=== PATIENT | male | born 1995 | race African-American/Black ===

== ENCOUNTER 2017-11-08 09:11 | Emergency (ER) | payer SELFPAY ==
[~2017-11-08] VITALS: Ht 165.1 cm; Wt 60.0 kg
[2017-11-08] MEDS ORDERED: IV NORMAL SALINE 1,000ML 1,000 ML IV ONE (09:45)
--- NOTE | 2017-11-08 09:48 | EKG ---
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
--- NOTE | 2017-11-08 09:51 | PHYS DOC ---
Past History Past Medical History: No Pertinent History Past Surgical History: No Surgical History Alcohol Use: None Drug Use: None Adult General Chief Complaint Chief Complaint: LACERATION/AVULSION HPI HPI 21-year-old male presents with abrasion of the right elbow after fall. The patient states he was walking on some rocks when he fell and scraped his right elbow. Further conversation with the patient reveals that he "may have blacked out". There is a gap in time where he does not remember the fall and woke up on the ground. He denies head injury or other injuries. He further admits to blackouts a couple of times a month for the last few months. They started for no apparent reason. He has not had a workup. Denies history of seizures or syncope. He has not been feeling ill. He has no other complaints. Review of Systems Review of Systems Constitutional: Denies fever or chills [] Eyes: Denies change in visual acuity, redness, or eye pain [] HENT: Denies nasal congestion or sore throat [] Respiratory: Denies cough or shortness of breath [] Cardiovascular: No additional information not addressed in HPI [] GI: Denies abdominal pain, nausea, vomiting, bloody stools or diarrhea [] : Denies dysuria or hematuria [] Musculoskeletal: Right elbow abrasion[] Integument: Denies rash or skin lesions [] Neurologic: Denies headache, focal weakness or sensory changes [] Endocrine: Denies polyuria or polydipsia [] All other systems were reviewed and found to be within normal limits, except as documented in this note. Allergies Allergies Allergies Coded Allergies Type Severity Reaction Last Updated Verified Penicillins Allergy Unknown 11/08/17 Yes ondansetron Allergy Unknown 11/08/17 Yes Physical Exam Physical Exam Constitutional: Well developed, well nourished, no acute distress, non-toxic appearance. [] HENT: Normocephalic, atraumatic, bilateral external ears normal, oropharynx moist, no oral exudates, nose normal. [] Eyes: PERRLA, EOMI, conjunctiva normal, no discharge. [] Neck: Normal range of motion, no tenderness, supple, no stridor. [] Cardiovascular:Heart rate regular rhythm, no murmur [] Lungs & Thorax: Bilateral breath sounds clear to auscultation [] Abdomen: Bowel sounds normal, soft, no tenderness, no masses, no pulsatile masses. [] Skin: 3 cm abrasion of the right posterior elbow. ROM WNL, no difficulty or pain with movement. [] Back: No tenderness, no CVA tenderness. [] Extremities: No tenderness, no cyanosis, no clubbing, ROM intact, no edema. [] Neurologic: Alert and oriented X 3, normal motor function, normal sensory function, no focal deficits noted. [] Psychologic: Flat affect, judgement normal, mood normal. [] Current Patient Data Vital Signs Vital Signs Date Time Temp Pulse Resp B/P (MAP) Pulse Ox O2 Delivery O2 Flow Rate FiO2 11/08/17 09:22 98.2 62 18 98 Room Air EKG EKG Sinus rhythm, rate 59, normal axis, no ST elevations or depressions.[] Radiology/Procedures Radiology/Procedures CT HEAD WITHOUT CONTRAST 11/08/2017 9:58 AM Indication: near syncope today Comparison: None available Procedure: Multidetector CT imaging of the head was performed without the administration of contrast. Findings: There is no evidence of acute intracranial hemorrhage. There is no evidence of acute territorial infarction. Please note that CT is limited for evaluation of acute ischemia. No mass effect or midline shift is identified . The ventricles and basilar cisterns have an appropriate appearance. No abnormal extra-axial fluid collections are seen. No acute osseous changes are identified. Impression: No evidence of acute intracranial abnormality CT DOSING PQRS STATEMENT: One or more of the following individualized dose reduction techniques were utilized for this examination: 1. Automated exposure control 2. Adjustment of the mA and/or kV according to patient size 3. Use of iterative reconstruction technique Electronically signed by: Zak Pena MD (11/08/2017 10:17 AM) [facility] DICTATED AND SIGNED BY: ZAK PENA MD DATE: 11/08/17 1015 AP and Lateral Views of the Chest 11/08/2017 9:56 AM Indication: near syncope Comparison: None available Findings: There is no focal consolidation or infiltrate identified. The cardiomediastinal silhouette is within normal limits. There is no evidence of pneumothorax or pleural effusion. No acute osseous abnormalities are identified. Impression: No evidence of acute cardiopulmonary process. Electronically signed by: Zak Pena MD (11/08/2017 10:14 AM) [facility] DICTATED AND SIGNED BY: ZAK PENA MD DATE: 11/08/17 1014 [] Course & Med Decision Making Course & Med Decision Making Pertinent Labs and Imaging studies reviewed. (See chart for details) The patient's demeanor strange. He answers questions slowly. He only gives very simple answers. I had to repeat a couple of questions. He does not seem to remember his vaccine history or other medical history. I'm not sure if this is simply distressed of myself or the medical system or even just the patient's personality. I am doing a complete syncope workup with head CT. The patient's EKG is unremarkable, his head CT is unremarkable, his chest x-ray is unremarkable. His labs significant for signs of dehydration in his urine. No signs of infection. We did give 1 L normal saline. The patient is a bit more alert and responsive. His UDS was positive for marijuana. It is possible that his symptoms stem from his marijuana use as there is been no witnessed syncope. Maybe he just thinks he passes out just doesn't remember. I did advise that he follow-up with a PCP and have further workup if he's having these episodes. He is stable for discharge at this time. His abrasion was treated irrigation, cleaning, antibiotic, and a nonadherent pad. The skin is abrazed off and sutures are not indicated. [] Dragon Disclaimer Dragon Disclaimer This electronic medical record was generated, in whole or in part, using a voice recognition dictation system. Departure Departure: Referrals: PCP,NO (PCP) TORO WYATT DO Nov 08, 2017 09:51
[2017-11-08 10:05] LABS: BASO % 1 % (0-3); EOS # 0.1 x10^3/uL (0.0-0.7); EOS % 1 % (0-3); HEMATOCRIT 41.1 % (39.0-53.0); HEMOGLOBIN 12.9 g/dL (13.0-17.5); LYMPH # 1.6 x10^3/uL (1.0-4.8); LYMPH % 29 % (24-48); MEAN CORPUSCULAR HEMOGLOBIN 23 pg (25-35); MEAN CORPUSCULAR HGB CONC 31 g/dL (31-37); MEAN CORPUSCULAR VOLUME 73 fL (79-100); MONO # 0.7 x10^3/uL (0.0-1.1); MONO % 13 % (0-9); NEUT # 3.1 x10^3uL (1.8-7.7); NEUT % 56 % (31-73); PLATELET COUNT 215 x10^3/uL (140-400); RED BLOOD COUNT 5.66 x10^6/uL (4.30-5.70); RED CELL DISTRIBUTION WIDTH 14.3 % (11.5-14.5); WHITE BLOOD COUNT 5.5 x10^3/uL (4.0-11.0)
[2017-11-08 10:07] LABS: AMPHETAMINE/METHAMPHETAMINE NEG (NEG); BARBITURATES NEG (NEG); BENZODIAZEPINES NEG (NEG); CANNABINOIDS POS (NEG); COCAINE NEG (NEG); METHADONE NEG (NEG); OPIATES NEG (NEG); PHENCYCLIDINE NEG (NEG)
[2017-11-08 10:10] LABS: CALCIUM 9.4 mg/dL (8.5-10.1); CREATININE 1.1 mg/dL (0.7-1.3); GFR 104.3; POTASSIUM 3.6 mmol/L (3.5-5.1)
[2017-11-08 10:11] LABS: BILIRUBIN,URINE NEG (NEG); CLARITY,URINE HAZY; COLOR,URINE AMBER; GLUCOSE,URINE NEG (NEG)
[2017-11-08 10:12] LABS: BACTERIA,URINE FEW /HPF (0-FEW); NITRITE,URINE NEG (NEG); SPERM,URINE PRESENT /HPF; SQUAMOUS EPITHELIAL CELL,UR FEW /LPF; UROBILINOGEN,URINE 2 mg/dL (0.2 mg/dL)
--- NOTE | 2017-11-08 10:17 | RAD ---
AP and Lateral Views of the Chest 11/08/2017 9:56 AM Indication: near syncope Comparison: None available Findings: There is no focal consolidation or infiltrate identified. The cardiomediastinal silhouette is within normal limits. There is no evidence of pneumothorax or pleural effusion. No acute osseous abnormalities are identified. Impression: No evidence of acute cardiopulmonary process. Electronically signed by: Zak Frausto MD (11/08/2017 10:14 AM) [facility]
--- NOTE | 2017-11-08 10:20 | RAD ---
CT HEAD WITHOUT CONTRAST 11/08/2017 9:58 AM Indication: near syncope today Comparison: None available Procedure: Multidetector CT imaging of the head was performed without the administration of contrast. Findings: There is no evidence of acute intracranial hemorrhage. There is no evidence of acute territorial infarction. Please note that CT is limited for evaluation of acute ischemia. No mass effect or midline shift is identified . The ventricles and basilar cisterns have an appropriate appearance. No abnormal extra-axial fluid collections are seen. No acute osseous changes are identified. Impression: No evidence of acute intracranial abnormality CT DOSING PQRS STATEMENT: One or more of the following individualized dose reduction techniques were utilized for this examination: 1. Automated exposure control 2. Adjustment of the mA and/or kV according to patient size 3. Use of iterative reconstruction technique Electronically signed by: Zak Frausto MD (11/08/2017 10:17 AM) [facility]
[2017-11-08 10:34] LABS: HYPOCHROMIA MOD; MICROCYTOSIS SLIGHT; PLT ESTIMATE ADEQUATE (ADEQUATE)
[2017-11-08 10:47] VITALS: BP 131/79
== END 2017-11-08 11:03 | disposition home or self-care (01) ==
LOC: ER 09:11
DX: S50.311A Abrasion of right elbow, initial encounter (principal); R55 Syncope and collapse; E86.0 Dehydration; Z88.0 Allergy status to penicillin; Z88.8 Allergy status to other drugs, medicaments and biological substances; W19.XXXA Unspecified fall, initial encounter; Y93.01 Activity, walking, marching and hiking; Y99.8 Other external cause status; Y92.89 Other specified places as the place of occurrence of the external cause
CPT/HCPCS: 36415; 70450; 71046; 80048; 80307; 81001; 85025; 93005; 96360; 99285-25; G0479; J7030

== ENCOUNTER 2018-03-10 10:28 | Emergency (ER) | payer SELFPAY ==
[~2018-03-10] VITALS: Ht 167.6 cm; Wt 61.2 kg
[2018-03-10] MEDS ORDERED: ASPIRIN 81 MG TAB.CHEW ONE (10:30)
[2018-03-10] MEDS ORDERED: ASPIRIN 81 MG TAB.CHEW PO ONE (10:30)
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
[2018-03-10 10:50] LABS: BASO % 1 % (0-3); EOS # 0.1 x10^3/uL (0.0-0.7); EOS % 2 % (0-3); HEMATOCRIT 43.9 % (39.0-53.0); HEMOGLOBIN 13.9 g/dL (13.0-17.5); LYMPH # 2.7 x10^3/uL (1.0-4.8); LYMPH % 39 % (24-48); MEAN CORPUSCULAR HEMOGLOBIN 23 pg (25-35); MEAN CORPUSCULAR HGB CONC 32 g/dL (31-37); MEAN CORPUSCULAR VOLUME 73 fL (79-100); MONO # 0.4 x10^3/uL (0.0-1.1); MONO % 5 % (0-9); NEUT # 3.6 x10^3uL (1.8-7.7); NEUT % 53 % (31-73); PLATELET COUNT 270 x10^3/uL (140-400); RED CELL DISTRIBUTION WIDTH 14.1 % (11.5-14.5); WHITE BLOOD COUNT 6.8 x10^3/uL (4.0-11.0)
--- NOTE | 2018-03-10 11:01 | RAD ---
Examination: CHEST PA LATERAL History: Chest and upper back pain today, no trauma Comparison/Correlation: None Findings: PA and lateral views of the chest were obtained. Heart size and pulmonary vasculature are normal. No infiltrate or effusion. No pneumothorax. Bony structures are unremarkable. Impression: No active disease. Electronically signed by: Collin Atkinson MD (03/10/2018 10:58 AM) [facility]
[2018-03-10 11:02] LABS: ALBUMIN 4.6 g/dL (3.4-5.0); ALBUMIN/GLOBULIN RATIO 1.2 (1.0-1.7); CALCIUM 9.4 mg/dL (8.5-10.1); CREATININE 1.3 mg/dL (0.7-1.3); GFR 85.2; POTASSIUM 3.3 mmol/L (3.5-5.1); TOTAL BILIRUBIN 0.5 mg/dL (0.2-1.0); TOTAL PROTEIN 8.6 g/dL (6.4-8.2)
--- NOTE | 2018-03-10 11:45 | EKG ---
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
[2018-03-10] MEDS ORDERED: IOHEXOL 300 MG/ML 75 ML VIAL. IV ONE (12:00)
--- NOTE | 2018-03-10 13:03 | RAD ---
Examination: CT ANGIOGRAPHY CHEST History: Omni 300 75cc; PE protocol: Chest and back pain, elevated d-dimer Comparison/Correlation: 03/02/2018 two-view chest x-ray exam Findings: Axial images of chest were obtained 0.75 cc Omnipaque 300 IV. Sagittal and coronal reformatted images were provided. Coronal MIP series was provided. Exam was performed according to pulmonary arteriography protocol. Pulmonary arterial vasculature is normal with no thromboembolic disease. Thoracic aortic morphology is grossly unremarkable but the thoracic aorta is not opacified for arteriographic evaluation purposes. No infiltrate, pulmonary nodule, or pneumothorax. No enlarged thoracic lymph nodes. No pleural or pericardial effusions. Bony structures are unremarkable. Partially visualized upper abdomen is unremarkable. Impression: Normal CT chest with contrast according to pulmonary arteriography protocol. Electronically signed by: Collin Atkinson MD (03/10/2018 12:59 PM) [facility]
--- NOTE | 2018-03-10 13:22 | EKG ---
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
[2018-03-10 14:09] VITALS: BP 123/68
== END 2018-03-10 14:16 | disposition home or self-care (01) ==
LOC: ER 10:28
DX: R07.81 Pleurodynia (principal); M54.6 Pain in thoracic spine; Z88.0 Allergy status to penicillin; Z88.8 Allergy status to other drugs, medicaments and biological substances
CPT/HCPCS: 36415; 71046; 71275; 80053; 84484; 85025; 85379; 85610; 93005; 99285; Q9967

== ENCOUNTER 2018-04-09 02:25 | Inpatient (IN) | payer SELFPAY ==
[~2018-04-09] VITALS: Ht 167.6 cm; Wt 60.3 kg
--- NOTE | 2018-04-09 02:28 | ED.ADGEN ---
Past History Past Medical History: Asthma, Seizure, Other Past Medical History ADHD Past Surgical History: No Surgical History Alcohol Use: None Drug Use: None Adult General Chief Complaint Chief Complaint ".. They said I had a seizure..." Pt. ".. We where in bed watching 'Fast and Furious'... and he started twitching.. I ask him if he was okay.. he said yes.. then a little while later.. he curled up and started shaking really bad... a seizure.. I could not get him to wake up... when he finally did... he was really confused.. deflash and wash operator finally arrived...he has never done this before... " Girl friend HPI HPI Patient is a 22 year old male who presents with hx. and complaints of Tonic / Clonic like seizure event. Pt. currently slow to answer questions as if post ictal. Pt. only complaints are some generalized back pain he had for over six months. Pt. seen here on 03/10 for CP and 11/08 fall and laceration. Pt. has hx of attention deficit hyperactive disorder but has not taken Adderall for over 4 years. Patient has had intermittent episodes of asthma. Patient does have a history of smoking marijuana. Patient denies any current drug use. Patient denies any fever or chills. Patient denies any specific ill contacts. Patient denies any travel. No history of trauma. Review of Systems Review of Systems Constitutional: Denies fever or chills [] Eyes: Denies change in visual acuity, redness, or eye pain [] HENT: Denies nasal congestion or sore throat [] Respiratory: Denies cough or shortness of breath [] Cardiovascular: No additional information not addressed in HPI [] GI: Denies abdominal pain, nausea, vomiting, bloody stools or diarrhea [] : Denies dysuria or hematuria [] Musculoskeletal: Generalized back pain . No joint pain [] Integument: Denies rash or skin lesions [] Neurologic: Denies headache, focal weakness or sensory changes . Pt.[]history of seizure like activity Endocrine: Denies polyuria or polydipsia [] All other systems were reviewed and found to be within normal limits, except as documented in this note. Family History Family History Non-contributory Current Medications Current Medications Current Medications Medications (Trade) Dose Ordered Sig/Tory Start Time Stop Time Status Last Admin Dose Admin Folic Acid (FOLIC ACID SYRINGE for ER) 5 mg STK-MED ONCE 04/09/18 02:52 04/09/18 02:53 DC Lactated Ringer's 1,000 ml @ 160 mls/hr Q6H15M 04/09/18 04:45 04/09/18 07:02 160 MLS/HR Lorazepam (Ativan) 1 mg 1X PRN PRN 04/09/18 04:45 Multivitamins/ Minerals (Infuvite Adult) 10 ml STK-MED ONCE 04/09/18 02:52 04/09/18 02:53 DC Multivitamins/ Minerals 10 ml/ Folic Acid 1 mg/ Thiamine HCl 100 mg/Lactated Ringer's 1,011.2 ml @ 1,011.2 mls/hr 1X ONCE 04/09/18 03:00 04/09/18 03:59 DC 04/09/18 02:55 1,011.2 MLS/HR Ondansetron HCl (Zofran) 4 mg PRN Q4HRS PRN 04/09/18 04:45 04/10/18 04:44 UNV Potassium Chloride (KCl Oral Soln) 40 meq 1X ONCE 04/09/18 04:30 04/09/18 04:32 DC 04/09/18 05:25 40 MEQ Thiamine HCl (Thiamine Vial) 200 mg STK-MED ONCE 04/09/18 02:52 04/09/18 02:53 DC See nursing for home meds Allergies Allergies Allergies Coded Allergies Type Severity Reaction Last Updated Verified Penicillins Allergy Unknown 11/08/17 Yes ondansetron Allergy Unknown 11/08/17 Yes Physical Exam Physical Exam Constitutional: Well developed, well nourished, no acute distress, non-toxic appearance. [] HENT: Normocephalic, atraumatic, bilateral external ears normal, oropharynx moist, no oral exudates, nose normal. [] Eyes: PERRLA, EOMI, conjunctiva normal, no discharge. [] Neck: Normal range of motion, no tenderness, supple, no stridor. [] Cardiovascular:Heart rate regular rhythm, no murmur [] Lungs & Thorax: Bilateral breath sounds equal apex with scattered wheezes on auscultation [] Abdomen: Bowel sounds normal, soft, no tenderness, no masses, no pulsatile masses. [] Skin: Warm, dry, no erythema, no rash. [] Back: Mild generalized muscle tenderness, no CVA tenderness. [] Extremities: No tenderness, no cyanosis, no clubbing, ROM intact, no edema. [] DTRs +2 patella and brachial. Distal sensation intact. Neurologic: Alert and oriented X 3, normal motor function, normal sensory function, no focal deficits noted. []Does appear post ictal. Psychologic: Affect flat, judgement normal, mood normal. [] Current Patient Data Vital Signs Vital Signs Date Time Temp Pulse Resp B/P (MAP) Pulse Ox O2 Delivery O2 Flow Rate FiO2 04/09/18 05:40 106 20 120/62 (81) 98 Room Air 04/09/18 02:33 97.9 Lab Results Laboratory Tests Test 04/09/18 02:44 04/09/18 03:43 White Blood Count 9.2 x10^3/uL (4.0-11.0) Red Blood Count 5.60 x10^6/uL (4.30-5.70) Hemoglobin 12.8 g/dL (13.0-17.5) L Hematocrit 40.3 % (39.0-53.0) Mean Corpuscular Volume 72 fL (79-100) L Mean Corpuscular Hemoglobin 23 pg (25-35) L Mean Corpuscular Hemoglobin Concent 32 g/dL (31-37) Red Cell Distribution Width 13.5 % (11.5-14.5) Platelet Count 278 x10^3/uL (140-400) Neutrophils (%) (Auto) 54 % (31-73) Lymphocytes (%) (Auto) 37 % (24-48) Monocytes (%) (Auto) 8 % (0-9) Eosinophils (%) (Auto) 1 % (0-3) Basophils (%) (Auto) 1 % (0-3) Neutrophils # (Auto) 5.0 x10^3uL (1.8-7.7) Lymphocytes # (Auto) 3.4 x10^3/uL (1.0-4.8) Monocytes # (Auto) 0.7 x10^3/uL (0.0-1.1) Eosinophils # (Auto) 0.1 x10^3/uL (0.0-0.7) Basophils # (Auto) 0.0 x10^3/uL (0.0-0.2) Platelet Estimate Adequate (ADEQUATE) Hypochromasia Slight Microcytosis Slight Erythrocyte Sedimentation Rate 4 (0-15) Prothrombin Time 10.5 SEC (9.4-11.4) Prothrombin Time INR 1.1 (0.9-1.1) PTT 24 SEC (23-33) Sodium Level 142 mmol/L (136-145) Potassium Level 3.3 mmol/L (3.5-5.1) L Chloride Level 103 mmol/L (98-107) Carbon Dioxide Level 23 mmol/L (21-32) Anion Gap 16 (6-14) H Blood Urea Nitrogen 16 mg/dL (8-26) Creatinine 1.2 mg/dL (0.7-1.3) Estimated GFR (Cockcroft-Gault) 93.4 Glucose Level 122 mg/dL (70-99) H Calcium Level 9.3 mg/dL (8.5-10.1) Magnesium Level 2.2 mg/dL (1.8-2.4) Creatine Kinase 353 U/L (39-308) H Troponin I Quantitative < 0.017 ng/mL (0-0.055) Urine Collection Type U cath Urine Color Yellow Urine Clarity Clear Urine pH 6.5 Urine Specific [place] 1.025 Urine Protein 30 mg/dl (NEG-TRACE) Urine Glucose (UA) Neg mg/dL (NEG) Urine Ketones (Stick) Neg mg/dL (NEG) Urine Blood Trace (NEG) Urine Nitrite Neg (NEG) Urine Bilirubin Neg (NEG) Urine Urobilinogen Dipstick 0.2 mg/dL (0.2 mg/dL) Urine Leukocyte Esterase Neg (NEG) Urine RBC 0 /HPF (0-2) Urine WBC Occ /HPF (0-4) Urine Squamous Epithelial Cells Occ /LPF Urine Bacteria 0 /HPF (0-FEW) Urine Opiates Screen Neg (NEG) Urine Methadone Screen Neg (NEG) Urine Barbiturates Neg (NEG) Urine Phencyclidine Screen Neg (NEG) Urine Amphetamine/Methamphetamine Neg (NEG) Urine Benzodiazepines Screen Neg (NEG) Urine Cocaine Screen Neg (NEG) Urine Cannabinoids Screen Pos (NEG) Urine Ethyl Alcohol Neg (NEG) EKG EKG My interpretation of EKG shows a sinus rhythm without acute morphology.[] Rate of 84 Radiology/Procedures Radiology/Procedures I interpretation of chest x-ray shows no acute cardiopulmonary findings. My interpretation CT of head shows no shift, mass, edema, bleed, or fracture. See formal report when available[] Course & Med Decision Making Course & Med Decision Making Pertinent Labs and Imaging studies reviewed. (See chart for details) Discussed presentation, testing and tx. plan with Dr. Wood- Will admit for further eval. [] Final Impression Final Impression 1. Hx of Tonic Clonic Seizure[] 2. Microcytic hypochromic anemia 12.8 Hgb. 72/23 3. Hypokalemia 3.3 Hgb 4. Elevated CK 353 5. Prolonged Post Ictal 6. Marijuana Use 7. Hx. of ADHD-as child Dragon Disclaimer Dragon Disclaimer This electronic medical record was generated, in whole or in part, using a voice recognition dictation system. MARY LOU GIBSON MD Apr 09, 2018 02:28
--- NOTE | 2018-04-09 02:40 | EKG ---
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 Electronically Signed On 04-10-2018 9:20:34 [employer] by Lars Barajas
[2018-04-09] MEDS ORDERED: MVI, ADULT NO.4 WITH VIT K 10 ML VIAL IV ONE (02:52)
[2018-04-09] MEDS ORDERED: THIAMINE 200 MG/2 ML VIAL. IV ONE (02:52)
[2018-04-09] MEDS ORDERED: FOLIC ACID 5 MG/ML SYRINGE for ER IV ONE (02:52)
[2018-04-09] MEDS ORDERED: MVI, ADULT NO.4 WITH VIT K 10 ML, FOLIC ACID SYRINGE for ER 1 MG, THIAMINE INJ 100 MG i... IV ONE ×4 (03:00)
[2018-04-09] MEDS ORDERED: LORazepam 2 MG/ML VIAL IV ONE (03:00)
[2018-04-09 03:22] LABS: BASO % 1 % (0-3); EOS # 0.1 x10^3/uL (0.0-0.7); EOS % 1 % (0-3); HEMATOCRIT 40.3 % (39.0-53.0); HEMOGLOBIN 12.8 g/dL (13.0-17.5); LYMPH # 3.4 x10^3/uL (1.0-4.8); LYMPH % 37 % (24-48); MEAN CORPUSCULAR HEMOGLOBIN 23 pg (25-35); MEAN CORPUSCULAR HGB CONC 32 g/dL (31-37); MEAN CORPUSCULAR VOLUME 72 fL (79-100); MONO # 0.7 x10^3/uL (0.0-1.1); MONO % 8 % (0-9); NEUT % 54 % (31-73); PLATELET COUNT 278 x10^3/uL (140-400); RED CELL DISTRIBUTION WIDTH 13.5 % (11.5-14.5); WHITE BLOOD COUNT 9.2 x10^3/uL (4.0-11.0)
--- NOTE | 2018-04-09 03:22 | RAD ---
CT scan of the head without contrast 04/09/2018 Clinical History: Seizures and lethargy. Technique: Unenhanced, contiguous, 5 mm axial sections were obtained through the head. One or more of the following individualized dose reduction techniques were utilized for this study: 1. Automated exposure control. 2. Adjustment of the mA and/or kV according to patient size. 3. Use of iterative reconstruction technique. Findings: Comparison study is dated 11/08/2017. The ventricles and sulci are within normal limits in size and configuration. No focal area of abnormal attenuation is seen involving the brain parenchyma. No extra-axial fluid collection is seen. A 1 cm mucous retention cyst is involving the left maxillary sinus. No skull fracture is seen. Impression: Negative study. Electronically signed by: Ran Lawler MD (04/09/2018 3:19 AM) [facility]
--- NOTE | 2018-04-09 03:24 | RAD ---
AP portable chest radiograph 04/09/2018 Clinical History: Weakness and lethargy. An AP erect portable digital radiograph of the chest was obtained. Comparison study is dated 03/10/2018. The cardiac and mediastinal silhouettes are within normal limits in size and configuration. No acute pulmonary infiltrate is seen. No pleural effusion or pneumothorax is noted. The osseous structures are grossly intact. Impression: No acute abnormality is seen. Electronically signed by: Ran Lawler MD (04/09/2018 3:20 AM) [id number]
[2018-04-09 03:30] LABS: CALCIUM 9.3 mg/dL (8.5-10.1); CREATININE 1.2 mg/dL (0.7-1.3); GFR 93.4; MAGNESIUM 2.2 mg/dL (1.8-2.4); POTASSIUM 3.3 mmol/L (3.5-5.1)
[2018-04-09 03:39] LABS: HYPOCHROMIA SLIGHT; MICROCYTOSIS SLIGHT; PLT ESTIMATE ADEQUATE (ADEQUATE)
[2018-04-09 04:04] LABS: BACTERIA,URINE 0 /HPF (0-FEW); BILIRUBIN,URINE NEG (NEG); CLARITY,URINE CLEAR; COLOR,URINE YELLOW; GLUCOSE,URINE NEG (NEG); NITRITE,URINE NEG (NEG); RBC,URINE 0 /HPF (0-2); SQUAMOUS EPITHELIAL CELL,UR OCC /LPF; UROBILINOGEN,URINE 0.2 mg/dL (0.2 mg/dL); WBC,URINE OCC /HPF (0-4)
[2018-04-09 04:11] LABS: BARBITURATES NEG (NEG); BENZODIAZEPINES NEG (NEG); CANNABINOIDS POS (NEG); COCAINE NEG (NEG); METHADONE NEG (NEG); OPIATES NEG (NEG); PHENCYCLIDINE NEG (NEG)
[2018-04-09 04:13] LABS: AMPHETAMINE/METHAMPHETAMINE NEG (NEG)
[2018-04-09] MEDS ORDERED: POTASSIUM CHLORIDE 20 MEQ/15 ML ORAL LIQUID. PO ONE (04:30)
[2018-04-09] MEDS ORDERED: LORazepam 2 MG/ML VIAL IV PRN ×2 (04:45→18:00)
[2018-04-09] MEDS ORDERED: ONDANSETRON PF 4 MG/2 ML VIAL. IV PRN (04:45)
[2018-04-09] MEDS: IV RINGERS SOLUTION,LACTATED 1,000 ML IV SCH ×4 (07:02→21:57)
[2018-04-09 08:01] VITALS: BP 129/77
[2018-04-09 10:30] VITALS: BP 111/61
[2018-04-09] MEDS ORDERED: METOCLOPRAMIDE HCL 10 MG/2 ML VIAL. ONE (12:37)
--- NOTE | 2018-04-09 13:21 | HP ---
ADMIT DATE: 04/09/2018 HISTORY OF PRESENT ILLNESS: The patient is a 22-year-old -Burkinan male patient who was brought to the Emergency Room. He was in bed watching fast and furious and started twitching. He apparently started shaking bad and was unresponsive. When he woke up, he was really confused, he apparently has bitten his tongue, but did not become incontinent of bladder or bowel. By the time he arrived to the Emergency Room, he was in postictal state. His only complaint when arrived there was generalized back pain that he had for almost 6 months. He apparently was seen on 03/10/2018 for chest pain and 11/08/2017 for fall and laceration. He apparently had a history of attention deficit hyperactivity syndrome and was taking Adderall before. He has also childhood bronchial asthma that he outgrow and apparently has history of smoking marijuana, although he denies any current drug use. PAST MEDICAL HISTORY: Significant for bronchial asthma and attention deficit hyperactivity syndrome. PAST SURGICAL HISTORY: Unremarkable. ALLERGIES: SHE IS ALLERGIC TO PENICILLIN AND ONDANSETRON. MEDICATIONS: He is currently on no medication. FAMILY HISTORY: He has 1 older sister and one younger sister, one younger brother, all healthy. He does not know his biological father. His mother is alive and healthy. 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 Smokes cigarettes occasionally, drinks alcohol occasionally. He claims that is not using any drugs, although his urine tox screen was positive for marijuana. PHYSICAL EXAMINATION: GENERAL: On arrival to the Emergency Room, he looked well and was clearly in no apparent respiratory distress, somewhat pale, but no jaundice, cyanosis, lymphadenopathy, or thyromegaly. No jugular venous distension. No lower limb edema. VITAL SIGNS: His heart rate was 106, blood pressure was 120/62, temperature was 98.2, respiratory rate was 20, and oxygen saturation was 98% on room air. HEAD, EYES, EARS, NOSE, AND THROAT: Showed normocephalic, atraumatic. NECK: Supple, with no neck rigidity. Kernig's sign was negative. HEART: Showed normal first and second heart sounds with no gallop, rub, or murmur. CHEST: Clear to auscultation. No crepitation or rhonchi. ABDOMEN: Distended, soft, nontender. NEUROLOGIC: He was awake, alert, responding appropriately. Cranial nerves intact. He moves extremities without difficulty, apparently he was able to ambulate without assistance or assistive devices. LABORATORY DATA: On arrival to the Emergency Room, he was extensively investigated. His chemistry showed a serum sodium 142, potassium 3.3, chloride 103, bicarbonate 23, anion gap of 16, BUN of 16, creatinine 1.2, estimated GFR was 93 mL per minute. His glucose was 122. His calcium was 9.3, magnesium was 2.2. CK was 353. His prothrombin time was 10.5, INR 1.1, aPTT was 24. Urinalysis showed the urine was yellow, clear with a pH of 6.5, specific gravity of 1.025, small amount of protein. The urine was negative for glucose, ketones, trace of blood. The urine was negative for nitrite, leukocyte esterase. There are no rbc's, occasional wbc's, no bacteria. His urine toxicology screen was positive for cannabinoids. He did have a CT scan of the head, which basically showed the ventricles and sulci are within normal limits in size and configuration. No focal areas of abnormal attenuation is seen involving the brain parenchyma. No extraaxial fluid collection is seen. A 1 cm mucus retention cyst is involving the left maxillary sinus. No skull fracture is seen. His chest x-ray showed no acute abnormalities seen. We did plan to arrange for him to have an EEG. He was seen by Dr. Álvarez, however, the patient decided to leave against medical advice. KELSIE MCKEON MD DR: REHAN/lindsey JOB#: [id number] / [id number]
[2018-04-09] MEDS ORDERED: METOCLOPRAMIDE HCL 10 MG/2 ML VIAL. IV PRN (13:30)
[2018-04-09 15:11] VITALS: BP 123/65
[2018-04-09 19:18] VITALS: BP 101/56
[2018-04-09 23:03] VITALS: BP 109/60
[2018-04-10] MEDS: IV RINGERS SOLUTION,LACTATED 1,000 ML IV SCH ×3 (05:13→18:15)
[2018-04-10 05:56] VITALS: BP 121/72
[2018-04-10 07:02] LABS: CALCIUM 8.6 mg/dL (8.5-10.1); CREATININE 0.8 mg/dL (0.7-1.3); GFR 149.1; POTASSIUM 3.2 mmol/L (3.5-5.1)
[2018-04-10 07:04] LABS: BASO % 1 % (0-3); EOS # 0.1 x10^3/uL (0.0-0.7); EOS % 2 % (0-3); HEMATOCRIT 36.3 % (39.0-53.0); HEMOGLOBIN 11.3 g/dL (13.0-17.5); LYMPH % 38 % (24-48); MEAN CORPUSCULAR HEMOGLOBIN 22 pg (25-35); MEAN CORPUSCULAR HGB CONC 31 g/dL (31-37); MEAN CORPUSCULAR VOLUME 72 fL (79-100); MONO # 0.4 x10^3/uL (0.0-1.1); MONO % 7 % (0-9); NEUT # 2.8 x10^3uL (1.8-7.7); NEUT % 53 % (31-73); PLATELET COUNT 195 x10^3/uL (140-400); RED BLOOD COUNT 5.07 x10^6/uL (4.30-5.70); RED CELL DISTRIBUTION WIDTH 13.5 % (11.5-14.5); WHITE BLOOD COUNT 5.2 x10^3/uL (4.0-11.0)
[2018-04-10] MEDS ORDERED: POTASSIUM CHLORIDE 20 MEQ TABLET.ER. PO ONE (08:30)
[2018-04-10 10:50] VITALS: BP 121/66
--- NOTE | 2018-04-10 12:47 | CONS ---
DATE OF CONSULTATION: 04/09/2018 NEUROLOGY CONSULTATION REFERRING PHYSICIAN: Dr. Wood. REASON FOR CONSULTATION: Recurrent seizures. HISTORY OF PRESENT ILLNESS: This is a 22-year-old right-handed -Armenian male who was admitted through the Emergency Room after he presented with possible recurrent seizure. Apparently the patient had a sudden onset of twitching followed by seizure-like activities, loss of consciousness and postictal confusion. In the Emergency Room, the patient was confused and disoriented and possibly in postictal state. According to his girlfriend, the patient had similar seizure-like activity a month ago. The patient denies any history of seizure during childhood, recent head injuries, or recent drug use. Nonenhanced head CT scan revealed no evidence of acute intracranial process. PAST MEDICAL HISTORY: Significant for asthma and attention deficit hyperactivity disorders. SOCIAL HISTORY: The patient is single. He works in [email or web address]. He smokes cigarette and he drinks alcohol occasionally. He denies drug use; however, his urine drug screen revealed evidence of marijuana. FAMILY HISTORY: Noncontributory. CURRENT HOME MEDICATIONS: None. REVIEW OF SYSTEMS: A 10-point review of system was performed as mentioned above in the history of present illness. PHYSICAL EXAMINATION: GENERAL: Well-developed, well-nourished -Armenian male, not in acute distress. He weighs 137 pounds. VITAL SIGNS: Blood pressure 129/77, respiratory rate 18, pulse is 91, temperature 98.2, oxygen saturation 97% on room air. HEENT: Normocephalic, atraumatic, otherwise unremarkable. NECK: Supple. Negative for carotid bruit, lymphadenopathy or thyromegaly. LUNGS: Clear to A and P. CARDIOVASCULAR: Regular rate and rhythm. Normal S1, S2. There is no S3, S4 or murmur. ABDOMEN: Soft. Bowel sounds positive. EXTREMITIES: Negative for cyanosis, clubbing, or pitting edema. NEUROLOGIC: 1. Mental Status: The patient is alert and oriented x 3. Speech is fluent. There is no language dysfunction. Memory, judgment, and abstract thinking are fair. The patient denies hallucination or delusion. 2. Cranial Nerves: Visual pantoja are full. The pupils are reactive to light and accommodation. The extraocular movements are intact. There is no nystagmus. There is no facial motor or sensory deficit. Hearing is intact bilaterally. The palate is elevated symmetrically. Sternocleidomastoid muscles are powerful bilaterally. The patient shrugs his shoulders symmetrically. He protrudes his tongue in the midline without fasciculation or atrophy. 3. Motor Examination: No focal muscle bulk was seen. The tone is normal. The strength is 5/5 throughout. 4. Sensory Examination: Normal pinprick, light touch, vibratory and position senses. 5. Deep Tendon Reflexes: Symmetric and active without pathologic responses. 6. Gait: Not tested. DIAGNOSTIC DATA: Head CT scan as mentioned above in history of present illness. Chest x-ray revealed no evidence of cardiopulmonary process. LABORATORY DATA: CBC revealed white blood cells of 9.2 thousand, hemoglobin 12.8, hematocrit 40.3, platelet count 278,000. Chemistry revealed sodium of 142, potassium 3.3, chloride 103, CO2 23, BUN 16, creatinine 1.2, glucose 122, calcium 9.3, creatinine kinase is 353. Troponin level is normal at 2. Urinalysis is negative for urinary tract infections and urine drug screen is positive for marijuana. IMPRESSION: 1. Possible breakthrough seizure, etiology uncertain. 2. History of bronchial asthma and attention deficit hyperactivity disorders. RECOMMENDATIONS: 1. Electroencephalogram. 2. Continue with current management initiated by Dr. Wood. In case of recurrent seizure during this hospitalization, the patient will be started on anticonvulsants. M Bar SALCIDO MD DR: TOBY/lindsey JOB#: [id number] / [id number]
[2018-04-10 15:20] VITALS: BP 107/71
== END 2018-04-10 19:24 | disposition home or self-care (01) | DRG 101 ==
LOC: ER 02:25 → 1 SOUTH 06:02
PROVIDERS: ADMIT Internal Medicine; ATTEND Internal Medicine
DX: G40.909 Epilepsy, unspecified, not intractable, without status epilepticus (principal); F05 Delirium due to known physiological condition; F17.210 Nicotine dependence, cigarettes, uncomplicated; F90.9 Attention-deficit hyperactivity disorder, unspecified type; D50.9 Iron deficiency anemia, unspecified; F12.90 Cannabis use, unspecified, uncomplicated; E87.6 Hypokalemia; Z79.899 Other long term (current) drug therapy; J45.909 Unspecified asthma, uncomplicated; Z88.0 Allergy status to penicillin; Z88.8 Allergy status to other drugs, medicaments and biological substances
CPT/HCPCS: 36415; 70450; 71045; 80048; 80307; 81001; 82550; 83735; 84484; 85025; 85045; 85610; 85651; 85730; 93005; 95816; J2060; J2765; J7120

== ENCOUNTER 2018-08-14 11:18 | Emergency (ER) | payer SELFPAY ==
[~2018-08-14] VITALS: Ht 167.6 cm; Wt 59.0 kg
[2018-08-14] MEDS ORDERED: IV NORMAL SALINE 1,000ML 1,000 ML IV ONE (11:30)
--- NOTE | 2018-08-14 11:47 | RAD ---
CT of the head without contrast, 08/14/2018: HISTORY: Seizure Comparison is made to a study from 04/09/2018. The ventricles are within normal limits in size. There is no shift of the midline structures. There is no evidence of acute intracranial hemorrhage or mass effect. IMPRESSION: No acute intracranial abnormality is detected. [facility] Compliance Statement: One or more of the following individualized dose reduction techniques were utilized for this examination: 1. Automated exposure control 2. Adjustment of the mA and/or kV according to patient size 3. Use of iterative reconstruction technique Electronically signed by: Loi Huynh MD (08/14/2018 11:44 AM) [facility]
--- NOTE | 2018-08-14 11:51 | PHYS DOC ---
Past History Past Medical History: Seizure Past Surgical History: No Surgical History Alcohol Use: None Drug Use: Marijuana Adult General Chief Complaint Chief Complaint: SEIZURE HPI HPI 3-year-old male presents with seizure. The patient was riding in a car with his family when he began to have full body convulsions. This lasted for a couple minutes. The patient has had 3 other previous episodes in the last 6 months. He is post ictal afterwards. He did not have any injuries to his tongue. He did not have loss of bowel or bladder. His last episode was 2 days ago and he bit his tongue at that time. The patient was seen last fall by neurologist and the EEG was negative. He was not placed on a medications. Patient has been feeling well. He denies fever or chills. Review of Systems Review of Systems Constitutional: Denies fever or chills [] Eyes: Denies change in visual acuity, redness, or eye pain [] HENT: Denies nasal congestion or sore throat [] Respiratory: Denies cough or shortness of breath [] Cardiovascular: No additional information not addressed in HPI [] GI: Denies abdominal pain, nausea, vomiting, bloody stools or diarrhea [] : Denies dysuria or hematuria [] Musculoskeletal: Denies back pain or joint pain [] Integument: Denies rash or skin lesions [] Neurologic: Seizure. Denies headache, focal weakness or sensory changes [] Endocrine: Denies polyuria or polydipsia [] All other systems were reviewed and found to be within normal limits, except as documented in this note. Current Medications Current Medications Current Medications Medications (Trade) Dose Ordered Sig/Tory Start Time Stop Time Status Last Admin Dose Admin Levetiracetam (Keppra) 1,000 mg 1X ONCE 08/14/18 12:00 08/14/18 12:01 Sodium Chloride 1,000 ml @ 1,000 mls/hr 1X ONCE 08/14/18 11:30 08/14/18 12:29 08/14/18 11:34 1,000 MLS/HR Allergies Allergies Allergies Coded Allergies Type Severity Reaction Last Updated Verified Penicillins Allergy Intermediate 08/14/18 Yes ondansetron Allergy Intermediate 08/14/18 Yes Physical Exam Physical Exam Constitutional: Well developed, well nourished, no acute distress, non-toxic appearance. [] HENT: Normocephalic, atraumatic, bilateral external ears normal, oropharynx moist, no oral exudates, nose normal. [] Eyes: PERRLA, EOMI, conjunctiva normal, no discharge. [] Neck: Normal range of motion, no tenderness, supple, no stridor. [] Cardiovascular:Heart rate regular rhythm, no murmur [] Lungs & Thorax: Bilateral breath sounds clear to auscultation [] Abdomen: Bowel sounds normal, soft, no tenderness, no masses, no pulsatile masses. [] Skin: Warm, dry, no erythema, no rash. [] Back: No tenderness, no CVA tenderness. [] Extremities: No tenderness, no cyanosis, no clubbing, ROM intact, no edema. [] Neurologic: Alert and oriented X 3, normal motor function, normal sensory function, no focal deficits noted. [] Psychologic: Affect normal, judgement normal, mood normal. [] Current Patient Data Vital Signs Vital Signs Date Time Temp Pulse Resp B/P (MAP) Pulse Ox O2 Delivery O2 Flow Rate FiO2 08/14/18 11:25 98.1 74 18 100 Room Air EKG EKG [] Radiology/Procedures Radiology/Procedures [] Impressions: CT of the head without contrast, 08/14/2018: HISTORY: Seizure Comparison is made to a study from 04/09/2018. The ventricles are within normal limits in size. There is no shift of the midline structures. There is no evidence of acute intracranial hemorrhage or mass effect. IMPRESSION: No acute intracranial abnormality is detected. [facility] Compliance Statement: One or more of the following individualized dose reduction techniques were utilized for this examination: 1. Automated exposure control 2. Adjustment of the mA and/or kV according to patient size 3. Use of iterative reconstruction technique Electronically signed by: Loi Huynh MD (08/14/2018 11:44 AM) [facility] DICTATED AND SIGNED BY: LOI HUYNH MD DATE: 08/14/18 1144 CC: TORO WYATT DO; PCP,NO ~ Course & Med Decision Making Course & Med Decision Making Pertinent Labs and Imaging studies reviewed. (See chart for details) The patient's head CT is negative for acute findings. His labs are unremarkable. His urine drug screen was positive for marijuana. We have given the patient 1 mg of Keppra by mouth in the ED. I will discharge the patient on 500 milligrams of Keppra twice a day. He is to follow-up with neurology as soon as possible. He is stable for discharge at this time. I have also advised patient that he cannot drive a vehicle until this disorder is under control. [] Dragon Disclaimer Dragon Disclaimer This electronic medical record was generated, in whole or in part, using a voice recognition dictation system. Departure Departure: Impression: Primary Impression: Seizure Disposition: HOME, SELF-CARE Condition: STABLE Referrals: PCP,NO (PCP) Patient Instructions: Seizure, Adult Scripts Levetiracetam (KEPPRA) 500 Mg Tablet 1 TAB PO BID for seizure for 15 Days, #30 TAB 0 Refills Prov: TORO WYATT DO 08/14/18 TORO WYATT DO Aug 14, 2018 11:51
[2018-08-14 11:55] LABS: ALBUMIN 4.2 g/dL (3.4-5.0); ALBUMIN/GLOBULIN RATIO 1.2 (1.0-1.7); CALCIUM 9.7 mg/dL (8.5-10.1); GFR 115.3; POTASSIUM 3.6 mmol/L (3.5-5.1); TOTAL BILIRUBIN 0.5 mg/dL (0.2-1.0); TOTAL PROTEIN 7.8 g/dL (6.4-8.2)
[2018-08-14 11:59] LABS: BASO % 0 % (0-3); EOS # 0.1 x10^3/uL (0.0-0.7); EOS % 2 % (0-3); HEMATOCRIT 43.9 % (39.0-53.0); HEMOGLOBIN 13.7 g/dL (13.0-17.5); LYMPH # 1.9 x10^3/uL (1.0-4.8); LYMPH % 42 % (24-48); MEAN CORPUSCULAR HEMOGLOBIN 23 pg (25-35); MEAN CORPUSCULAR HGB CONC 31 g/dL (31-37); MEAN CORPUSCULAR VOLUME 73 fL (79-100); MONO # 0.5 x10^3/uL (0.0-1.1); MONO % 10 % (0-9); NEUT # 2.1 x10^3uL (1.8-7.7); NEUT % 46 % (31-73); PLATELET COUNT 249 x10^3/uL (140-400); RED BLOOD COUNT 6.05 x10^6/uL (4.30-5.70); RED CELL DISTRIBUTION WIDTH 14.2 % (11.5-14.5); WHITE BLOOD COUNT 4.6 x10^3/uL (4.0-11.0)
[2018-08-14] MEDS ORDERED: levETIRAcetam 500 MG TABLET PO ONE (12:00)
[2018-08-14 12:56] LABS: AMPHETAMINE/METHAMPHETAMINE NEG (NEG); BARBITURATES NEG (NEG); BENZODIAZEPINES NEG (NEG); CANNABINOIDS POS (NEG); COCAINE NEG (NEG); METHADONE NEG (NEG); OPIATES NEG (NEG); PHENCYCLIDINE NEG (NEG)
[2018-08-14 12:58] LABS: BILIRUBIN,URINE NEG (NEG); CLARITY,URINE CLEAR; COLOR,URINE YELLOW; GLUCOSE,URINE NEG (NEG)
[2018-08-14 12:59] LABS: BACTERIA,URINE FEW /HPF (0-FEW); NITRITE,URINE NEG (NEG); RBC,URINE RARE /HPF (0-2); SQUAMOUS EPITHELIAL CELL,UR OCC /LPF; UROBILINOGEN,URINE 0.2 mg/dL (0.2 mg/dL)
[2018-08-14] MEDS ORDERED: LEVE500T56 PO (13:11)
[2018-08-14 13:16] VITALS: BP 128/81
== END 2018-08-14 13:18 | disposition home or self-care (01) ==
LOC: ER 11:18
DX: R56.9 Unspecified convulsions (principal); F12.10 Cannabis abuse, uncomplicated; Z88.0 Allergy status to penicillin; Z88.8 Allergy status to other drugs, medicaments and biological substances
CPT/HCPCS: 36415; 70450; 80053; 80307; 81001; 85025; 96374; 99284; J2060; J7030

== ENCOUNTER 2018-10-12 00:42 | Emergency (ER) | payer SELFPAY ==
[~2018-10-12] VITALS: Ht 167.6 cm; Wt 65.0 kg
[~2018-10-12 00:42] MED LIST: LEVE500T56 PO
[2018-10-12] MEDS ORDERED: CEPHALEXIN 250 MG CAPSULE PO ONE (00:45)
[2018-10-12] MEDS ORDERED: LIDOCAINE 2% 20 ML VIAL. IJ ONE (00:45)
--- NOTE | 2018-10-12 00:45 | ED.ADGEN ---
Past History Past Medical History: Seizure Past Surgical History: No Surgical History Alcohol Use: None Drug Use: Marijuana Adult General Chief Complaint Chief Complaint ".. I was doing dishes.. and cut my Lt wrist.. " HPI HPI Patient is a 22 year old male who presents with 2 cm laceration to Lt wrist while doing dishes. Pt. cut laceration on knife in the sink. Pt. wash area with cold water. Had range of motion and distal sensation. Pt. does not remember last tetanus. Pt. is Rt. hand dominate. No recent travel. No history immunosuppression. Patient normally healthy. Review of Systems Review of Systems Constitutional: Denies fever or chills [] Eyes: Denies change in visual acuity, redness, or eye pain [] HENT: Denies nasal congestion or sore throat [] Respiratory: Denies cough or shortness of breath [] Cardiovascular: No additional information not addressed in HPI [] GI: Denies abdominal pain, nausea, vomiting, bloody stools or diarrhea [] : Denies dysuria or hematuria [] Musculoskeletal: Denies back pain or joint pain []complains laceration to left wrist Integument: Denies rash or skin lesions [] Neurologic: Denies headache, focal weakness or sensory changes [] Endocrine: Denies polyuria or polydipsia [] All other systems were reviewed and found to be within normal limits, except as documented in this note. Family History Family History Noncontributory Current Medications Current Medications Current Medications Medications (Trade) Dose Ordered Sig/Tory Start Time Stop Time Status Last Admin Dose Admin Cephalexin HCl (Keflex) 250 mg STK-MED ONCE 10/12/18 00:59 10/12/18 01:29 DC Diphtheria/ Tetanus/Acell Pertussis (Boostrix) 0.5 ml STK-MED ONCE 10/12/18 00:59 10/12/18 01:29 DC Lidocaine HCl 20 ml 1X ONCE 10/12/18 00:45 10/12/18 01:29 DC Allergies Allergies Allergies Coded Allergies Type Severity Reaction Last Updated Verified Penicillins Allergy Intermediate 08/14/18 Yes ondansetron Allergy Intermediate 08/14/18 Yes Physical Exam Physical Exam Constitutional: Well developed, well nourished, no acute distress, non-toxic appearance. [] HENT: Normocephalic, atraumatic, bilateral external ears normal, oropharynx moist, no oral exudates, nose normal. [] Eyes: PERRLA, EOMI, conjunctiva normal, no discharge. [] Neck: Normal range of motion, no tenderness, supple, no stridor. [] Cardiovascular:Heart rate regular rhythm, no murmur [] Lungs & Thorax: Bilateral breath sounds clear to auscultation [] Abdomen: Bowel sounds normal, soft, no tenderness, no masses, no pulsatile masses. [] Skin: Warm, dry, no erythema, no rash. [] Back: No tenderness, no CVA tenderness. [] Extremities: No tenderness, no cyanosis, no clubbing, ROM intact, no edema. [] Laceration left wrist Neurologic: Alert and oriented X 3, normal motor function, normal sensory function, no focal deficits noted. [] Psychologic: Affect normal, judgement normal, mood normal. [] EKG EKG [] Radiology/Procedures Radiology/Procedures [] Course & Med Decision Making Course & Med Decision Making Pertinent Labs and Imaging studies reviewed. (See chart for details) Suture note- laceration cleaned with water and Betadine. Injected edge laceration with lidocaine. Reirrigated laceration in range of motion with normal saline. Closed laceration with dissolvable Vicryl sutures 4. Dressing applied. Patient keep laceration clean and dry. Apply Polysporin 4 times a day. Patient take Keflex 500 mg 3 times a day. Patient to follow-up primary care. Patient return if any concerns. [] Final Impression Final Impression 1. 2 cm Laceration Lt. wrist[] Dragon Disclaimer Dragon Disclaimer This electronic medical record was generated, in whole or in part, using a voice recognition dictation system. Discharge Summary Visit Information Final Diagnosis Problems Medical Problems: (1) Laceration Status: Acute Brief Hospital Course Allergies Allergies Coded Allergies Type Severity Reaction Last Updated Verified Penicillins Allergy Intermediate 08/14/18 Yes ondansetron Allergy Intermediate 08/14/18 Yes Brief Hospital Course Mr. Haile is a 22 old male who presented with 2 cm laceration Lt. wrist. Discharge Information Condition at Discharge: Improved, Stable Disposition/Orders: D/C to Home Dischare Medications Current Medications Lidocaine HCl 20 ml 1X ONCE IJ ; Start 10/12/18 at 00:45; Stop 10/12/18 at 01:29; Status DC Cephalexin HCl (Keflex) 500 mg 1X ONCE PO Last administered on 10/12/18at 01:01; Admin Dose 500 MG; Start 10/12/18 at 00:45; Stop 10/12/18 at 01:29; Status DC Diphtheria/ Tetanus/Acell Pertussis (Boostrix) 0.5 ml ONCE ONCE VAX IM Last administered on 10/12/18at 01:00; Admin Dose 0.5 ML; Start 10/12/18 at 01:00; Stop 10/12/18 at 01:29; Status DC Cephalexin HCl (Keflex) 250 mg STK-MED ONCE .ROUTE ; Start 10/12/18 at 00:59; St op 10/12/18 at 01:29; Status DC Diphtheria/ Tetanus/Acell Pertussis (Boostrix) 0.5 ml STK-MED ONCE VAX IM ; Start 10/12/18 at 00:59; Stop 10/12/18 at 01:29; Status DC Active Scripts Active Keflex (Cephalexin) 500 Mg Capsule 500 Mg PO TID 7 Days Keppra (Levetiracetam) 500 Mg Tablet 1 Tab PO BID 15 Days Reported No Known Medications Prior To Admisstion (Info) Each 1 Each DAILY Dragon Disclaimer This chart was dictated in whole or in part using Voice Recognition software in a busy, high-work load, and often noisy Emergency Department environment. It may contain unintended and wholly unrecognized errors or omissions. MARY LOU GIBSON MD Oct 12, 2018 00:45
[2018-10-12] MEDS ORDERED: DIPHTH,PERTUSS(ACELL),TET TOX 0.5 ML DISP.SYRIN. VAX IM ONE ×2 (00:59→01:00)
[2018-10-12] MEDS ORDERED: CEPHALEXIN 250 MG CAPSULE ONE (00:59)
[2018-10-12 01:20] VITALS: BP 124/78
[2018-10-12] MEDS ORDERED: CEPH-264 PO (01:21)
[2018-10-12] MEDS ORDERED: OXAPROZIN PO (14:32)
== END 2018-10-12 01:28 | disposition home or self-care (01) ==
LOC: ER 00:42
DX: S61.512A Laceration without foreign body of left wrist, initial encounter (principal); Z88.0 Allergy status to penicillin; Z88.8 Allergy status to other drugs, medicaments and biological substances; W26.0XXA Contact with knife, initial encounter; Y93.G1 Activity, food preparation and clean up; Y92.89 Other specified places as the place of occurrence of the external cause; Y99.8 Other external cause status
CPT/HCPCS: 12001; 90471; 90715; 99283

== ENCOUNTER 2018-10-12 14:10 | Emergency (ER) | payer SELFPAY ==
[~2018-10-12] VITALS: Ht 167.6 cm; Wt 65.0 kg
[2018-10-12 14:10] VITALS: BP 118/79
[~2018-10-12 14:10] MED LIST changes: +CEPH-264 PO
[2018-10-12] MEDS ORDERED: IBUPROFEN 600 MG TABLET. PO ONE (14:30)
[2018-10-12] MEDS ORDERED: OXAPROZIN PO (14:32)
--- NOTE | 2018-10-12 14:32 | PHYS DOC ---
Past History Past Medical History: No Pertinent History, Seizure Past Surgical History: No Surgical History Alcohol Use: None Drug Use: Marijuana Adult General Chief Complaint Chief Complaint: HAND PROBLEM HPI HPI Patient is a 22-year-old male presents complaining of left wrist pain and bleeding. Patient was seen last night for a laceration that was repaired. He was cut on a knife that was in the sink as he was doing dishes. He has taken no medicine for the discomfort since this happened. There was blood seeping through the bandage so patient was concerned that a stitch may have broken. There has been no purulent drainage. No fever. No new numbness or tingling. Increased pain with movement. Reports that the pain is severe. [] Review of Systems Review of Systems Constitutional: Denies fever or chills [] Eyes: Denies change in visual acuity, redness, or eye pain [] HENT: Denies nasal congestion or sore throat [] Respiratory: Denies cough or shortness of breath [] Cardiovascular: No chest pain or palpitations[] GI: Denies abdominal pain, nausea, vomiting, bloody stools or diarrhea [] : Denies dysuria or hematuria [] Musculoskeletal: Denies back pain, see history of present illness[] Integument: Denies rash or skin lesions, see history of present illness[] Neurologic: Denies headache, focal weakness or sensory changes [] Endocrine: Denies polyuria or polydipsia [] All other systems were reviewed and found to be within normal limits, except as documented in this note. Allergies Allergies Allergies Coded Allergies Type Severity Reaction Last Updated Verified Penicillins Allergy Intermediate 08/14/18 Yes ondansetron Allergy Intermediate 08/14/18 Yes Physical Exam Physical Exam Constitutional: Well developed, well nourished, no acute distress, eating crackers while obtaining the H&P, non-toxic appearance. [] HENT: Normocephalic, atraumatic, bilateral external ears normal, oropharynx moist, no oral exudates, nose normal. [] Eyes: PERRLA, EOMI, conjunctiva normal, no discharge. [] Neck: Normal range of motion, no tenderness, supple, no stridor. [] Cardiovascular:Heart rate regular rhythm, no murmur [] Lungs & Thorax: Bilateral breath sounds clear to auscultation [] Abdomen: Not examined. [] Skin: Warm, dry, no erythema, no rash. Left wrist incision line appears to be clean and dry. No broken sutures. No significant erythema. No bleeding, no purulent drainage.[] Back: No tenderness, no CVA tenderness. [] Extremities: Full active range of motion of the left wrist, FDS, FDP, and extensor mechanism is intact all fingers, normal opposition, 2 point discrimination less than 5 mm, capillary refill is less than 2 seconds. The other 3 extremities show: No tenderness, no cyanosis, no clubbing, ROM intact, no edema. [] Neurologic: Alert and oriented X 3, normal motor function, normal sensory function, no focal deficits noted. [] Psychologic: Affect normal, judgement normal, mood normal. [] EKG EKG [] Radiology/Procedures Radiology/Procedures [] Course & Med Decision Making Course & Med Decision Making Pertinent Labs and Imaging studies reviewed. (See chart for details) Medical decision making: There is no evidence of an infection, no evidence of significant laceration involving the neurologic, vascular, nor tendinous structures. No evidence of retained foreign body.[] Dragon Disclaimer Dragon Disclaimer This electronic medical record was generated, in whole or in part, using a voice recognition dictation system. Departure Departure: Impression: Primary Impression: Visit for wound check Disposition: HOME, SELF-CARE Condition: IMPROVED Referrals: PCPHARDY (PCP) Patient Instructions: Sutured Wound Care Additional Instructions: Follow-up with your regular doctor in 2 days. Take the medication as prescribed. Return to the ER if worsening discomfort, purulent drainage, fever of more than 101, or any other concerns. Scripts [oxaprozin] No Conflict Check 600 MG PO BID for pain, #20 TAB Prov: JACQUELINE HILARIO DO 10/12/18 JACQEULINE HILARIO DO Oct 12, 2018 14:32
== END 2018-10-12 14:44 | disposition home or self-care (01) ==
LOC: ER 14:10
DX: S61.512D Laceration without foreign body of left wrist, subsequent encounter (principal); Z88.0 Allergy status to penicillin; Z88.8 Allergy status to other drugs, medicaments and biological substances; W26.0XXD Contact with knife, subsequent encounter
CPT/HCPCS: 99283

== ENCOUNTER 2020-09-15 20:12 | Emergency (ER) | payer SELFPAY ==
[~2020-09-15] VITALS: Ht 167.6 cm; Wt 65.0 kg
[~2020-09-15 20:12] MED LIST changes: +OXAPROZIN PO
[2020-09-15] MEDS: levETIRAcetam 500 MG TABLET PO SCH (20:29)
[2020-09-15 21:34] LABS: BASO % 1 % (0-3); EOS % 1 % (0-3); HEMATOCRIT 39.4 % (39.0-53.0); HEMOGLOBIN 12.4 g/dL (13.0-17.5); LYMPH # 1.5 x10^3/uL (1.0-4.8); LYMPH % 26 % (24-48); MEAN CORPUSCULAR HEMOGLOBIN 23 pg (25-35); MEAN CORPUSCULAR HGB CONC 32 g/dL (31-37); MEAN CORPUSCULAR VOLUME 73 fL (79-100); MONO # 0.4 x10^3/uL (0.0-1.1); MONO % 7 % (0-9); NEUT # 3.8 x10^3uL (1.8-7.7); NEUT % 66 % (31-73); PLATELET COUNT 197 x10^3/uL (140-400); RED BLOOD COUNT 5.37 x10^6/uL (4.30-5.70); RED CELL DISTRIBUTION WIDTH 13.8 % (11.5-14.5); WHITE BLOOD COUNT 5.8 x10^3/uL (4.0-11.0)
[2020-09-15 21:44] LABS: CALCIUM 9.1 mg/dL (8.5-10.1); GFR 113.1; MAGNESIUM 1.9 mg/dL (1.8-2.4); POTASSIUM 3.4 mmol/L (3.5-5.1)
[2020-09-15] MEDS ORDERED: LEVE500T56 PO (22:51)
--- NOTE | 2020-09-15 22:52 | PHYS DOC ---
Past History Past Medical History: Seizure Past Surgical History: No Surgical History Alcohol Use: None Drug Use: Marijuana Adult General Chief Complaint Chief Complaint: SEIZURE HPI HPI Patient is a 24-year-old male with a past medical history of seizure disorder who presents to the emergency department with a chief complaint of afraid he is can have a seizure. States he takes Keppra and is supposed to take 2 500 mg tablets daily but only takes 1 daily because they are expensive and is trying to save. States he did not take any today and was worried he was going have a seizure. States he only has a week's worth left and does not want to take any and wants a refill on his medication. Denies any headache, changes in vision, seizure activity, chest pain, shortness of breath, abdominal pain, nausea, vomiting. States he is eating and drinking normally. States he is making urine and stool normally for him. Review of Systems Review of Systems Review of systems otherwise unremarkable except noted in HPI Current Medications Current Medications Current Medications Medications (Trade) Dose Ordered Sig/Tory Start Time Stop Time Status Last Admin Dose Admin Levetiracetam (Keppra) 500 mg BID 09/15/20 21:00 09/15/20 20:29 500 MG Allergies Allergies Allergies Coded Allergies Type Severity Reaction Last Updated Verified Penicillins Allergy Intermediate 10/14/18 Yes ondansetron Allergy Intermediate 10/14/18 Yes Physical Exam Physical Exam Constitutional: Well developed, well nourished, no acute distress, non-toxic appearance. [] HENT: Normocephalic, atraumatic, bilateral external ears normal, oropharynx moist, no oral exudates, nose normal. [] Eyes: PERRLA, EOMI, conjunctiva normal, no discharge. [] Neck: Normal range of motion, no tenderness, supple, no stridor. [] Cardiovascular:Heart rate regular rhythm, no murmur [] Lungs & Thorax: Bilateral breath sounds clear to auscultation [] Abdomen: Bowel sounds normal, soft, no tenderness, no masses, no pulsatile masses. [] Skin: Warm, dry, no erythema, no rash. [] Back: No tenderness, no CVA tenderness. [] Extremities: No tenderness, no cyanosis, no clubbing, ROM intact, no edema. [] Neurologic: Alert and oriented X 3, normal motor function, normal sensory function, no focal deficits noted. [] Psychologic: Affect normal, judgement normal, mood normal. [] Current Patient Data Vital Signs Vital Signs Date Time Temp Pulse Resp B/P (MAP) Pulse Ox O2 Delivery O2 Flow Rate FiO2 09/15/20 20:55 97.6 76 16 144/83 (103) 99 Room Air Lab Results Laboratory Tests Test 09/15/20 21:20 White Blood Count 5.8 x10^3/uL (4.0-11.0) Red Blood Count 5.37 x10^6/uL (4.30-5.70) Hemoglobin 12.4 g/dL (13.0-17.5) L Hematocrit 39.4 % (39.0-53.0) Mean Corpuscular Volume 73 fL (79-100) L Mean Corpuscular Hemoglobin 23 pg (25-35) L Mean Corpuscular Hemoglobin Concent 32 g/dL (31-37) Red Cell Distribution Width 13.8 % (11.5-14.5) Platelet Count 197 x10^3/uL (140-400) Neutrophils (%) (Auto) 66 % (31-73) Lymphocytes (%) (Auto) 26 % (24-48) Monocytes (%) (Auto) 7 % (0-9) Eosinophils (%) (Auto) 1 % (0-3) Basophils (%) (Auto) 1 % (0-3) Neutrophils # (Auto) 3.8 x10^3uL (1.8-7.7) Lymphocytes # (Auto) 1.5 x10^3/uL (1.0-4.8) Monocytes # (Auto) 0.4 x10^3/uL (0.0-1.1) Eosinophils # (Auto) 0.0 x10^3/uL (0.0-0.7) Basophils # (Auto) 0.0 x10^3/uL (0.0-0.2) Sodium Level 143 mmol/L (136-145) Potassium Level 3.4 mmol/L (3.5-5.1) L Chloride Level 105 mmol/L (98-107) Carbon Dioxide Level 28 mmol/L (21-32) Anion Gap 10 (6-14) Blood Urea Nitrogen 13 mg/dL (8-26) Creatinine 1.0 mg/dL (0.7-1.3) Estimated GFR (Cockcroft-Gault) 113.1 Glucose Level 76 mg/dL (70-99) Calcium Level 9.1 mg/dL (8.5-10.1) Magnesium Level 1.9 mg/dL (1.8-2.4) EKG EKG [] Radiology/Procedures Radiology/Procedures [] Heart Score C/O Chest Pain: No Risk Factors: Risk Factors: DM, Current or recent (<one month) smoker, HTN, HLP, family history of CAD, obesity. Risk Scores: Risk Factors: DM, Current or recent (<one month) smoker, HTN, HLP, family history of CAD, obesity. Course & Med Decision Making Course & Med Decision Making Patient is a 24-year-old male who presents with a chief complaint of need for seizure medication refill and fear of having a seizure Vital signs not concerning. Physical exam noted above. Patient alert and oriented no acute distress with no seizure activity and no focal neurologic deficits. Given home dose of Keppra. Laboratory analysis not concerning. Discussed all findings with patient and discussed good Rx and need to take his medications appropriately. Gave prescription for Keppra and good Rx coupon and showed how to use it on the phone. Advised to follow-up in the morning with primary care physician to discuss ED visit. Gave strict return precautions to the ED. Family grateful, verbalized unders tanding and agreed with plan of discharge. [] Dragon Disclaimer Dragon Disclaimer This electronic medical record was generated, in whole or in part, using a voice recognition dictation system. Departure Departure: Impression: Primary Impression: Medication refill Disposition: HOME / SELF CARE / HOMELESS Condition: GOOD Referrals: PCP,NO (PCP) Patient Instructions: Seizure, Adult Additional Instructions: Please read the attached information carefully. Please take all your seizure medications as prescribed and do not miss any doses. Please call your primary care physician or your neurologist in the morning to update on your ED visit and need for [place] management. Please come back to the ED immediately with new or concerning symptoms as discussed Scripts Levetiracetam (KEPPRA) 500 Mg Tablet 1 TAB PO BID for Seizure for 30 Days, #60 TAB 1 Refill Prov: STEPHANIE PAINTER MD 09/15/20 STEPHANIE PAINTER MD September 15, 2020 22:52
[2020-09-15 23:00] VITALS: BP 128/81
== END 2020-09-15 23:00 | disposition home or self-care (01) ==
LOC: ER 20:12
DX: G40.909 Epilepsy, unspecified, not intractable, without status epilepticus (principal); Z76.0 Encounter for issue of repeat prescription; Z88.0 Allergy status to penicillin; Z88.8 Allergy status to other drugs, medicaments and biological substances
CPT/HCPCS: 36415; 80048; 83735; 85025; 99283